=== PATIENT | male | born 1965 | race Caucasian/White ===

== ENCOUNTER → 2021-08-29 | Outpatient (CLI) | payer OTHER ==
[2021-08-29 14:49] LABS: Basophils # (A) 0.04 X 10*3/uL (0.00-0.10); Basophils % (A) 0.4 %; Eosinophils # (A) 0.13 X 10*3/uL (0.04-0.35); Eosinophils % (A) 1.3 %; HCT 36.3 % (39.6-50.0); Lymphocytes # (A) 3.26 X 10*3/uL (0.90-5.00); Lymphocytes % (A) 32.4 %; MCH 30.8 pg (27.0-32.0); MCHC 33.1 g/dL (32.0-37.0); MCV 93.1 fL (80.0-97.0); Mean Platelet Volume 9.9 fL (9.5-12.2); Monocytes # (A) 0.78 X 10*3/uL (0.20-1.00); Monocytes % (A) 7.7 %; Neutrophils # (A) 5.82 X 10*3/uL (1.80-7.70); Neutrophils % (A) 57.8 %; Platelet Count 299 X 10*3/uL (140-440); RDW 12.4 % (11.5-14.5); WBC 10.07 X 10*3/uL (4.50-10.00)
[2021-08-29 15:18] LABS: Ferritin 26.1 ng/mL (22.0-322.0)
== END | disposition home or self-care (01) ==
LOC: LABWHC1 08:33
PROVIDERS: ATTEND Family Medicine
DX: E11.9 Type 2 diabetes mellitus without complications (principal); D64.9 Anemia, unspecified
CPT/HCPCS: 36415; 82728; 83036; 83540; 85025

== ENCOUNTER → 2022-01-09 | Outpatient (CLI) | payer OTHER ==
[2022-01-09 14:56] LABS: Basophils # (A) 0.01 X 10*3/uL (0.00-0.10); Basophils % (A) 0.1 %; Eosinophils # (A) 0.12 X 10*3/uL (0.04-0.35); Eosinophils % (A) 1.1 %; HCT 35.1 % (39.6-50.0); HGB 11.4 g/dL (13.0-17.0); Immature Grans, Automated 0.4 %; Lymphocytes # (A) 3.35 X 10*3/uL (0.90-5.00); Lymphocytes % (A) 29.4 %; MCH 30.2 pg (27.0-32.0); MCHC 32.5 g/dL (32.0-37.0); MCV 92.9 fL (80.0-97.0); Mean Platelet Volume 10.2 fL (9.5-12.2); Monocytes # (A) 0.92 X 10*3/uL (0.20-1.00); Monocytes % (A) 8.1 %; NRBC Per 100 WBC 0 /100 WBCS (0.0-0.0); Neutrophils # (A) 6.94 X 10*3/uL (1.80-7.70); Neutrophils % (A) 60.9 %; Platelet Count 269 X 10*3/uL (140-440); RBC 3.78 X 10*6/uL (4.40-5.60); RDW 12.8 % (11.5-14.5); WBC 11.38 X 10*3/uL (4.50-10.00)
[2022-01-09 15:23] LABS: % Iron Saturation 13.22 (15.00-50.00); ALT 17 U/L (10-49); AST 22 U/L (14-35); African American GFR (CKD) 116.6 (60.0-200.0); Albumin 4.3 g/dL (3.8-4.9); Albumin/Globulin Ratio 1.72 (1.60-3.17); Alkaline Phosphatase 80 U/L (41-126); BUN/Creat Ratio 34.88 Ratio (12.00-20.00); Blood Urea Nitrogen 27.9 mg/dL (9.0-27.0); Calcium 9.5 mg/dL (8.7-10.3); Carbon Dioxide 24.4 mmol/L (20.0-27.5); Chloride 103 mmol/L (96-109); Chol/HDL Ratio 2.54 Ratio; Ferritin 30.3 ng/mL (22.0-322.0); Globulin 2.5 g/dL (1.6-3.3); Glucose 108 mg/dL (70-110); Iron 47 ug/dL (65-175); Non-African American GFR(CKD) 100.6 (60.0-200.0); Potassium 3.7 mmol/L (3.5-5.5); Sodium 136 mmol/L (135-145); Total Bilirubin <0.15 mg/dL (0.30-1.20); Total Iron Binding Capacity 356 ug/dL (228-460); Total Protein 6.8 g/dL (6.2-8.2); VLDL Calculation 11.62 mg/dL (5.00-40.00)
== END | disposition home or self-care (01) ==
LOC: LABWHC1 08:43
PROVIDERS: ATTEND Family Medicine
DX: Z00.00 Encounter for general adult medical examination without abnormal findings (principal); E11.59 Type 2 diabetes mellitus with other circulatory complications; E55.9 Vitamin D deficiency, unspecified; D64.9 Anemia, unspecified
CPT/HCPCS: 80061; 80053; 82728; 83540; 83550; 85025; 82306; 83036; 36415; G0103

== ENCOUNTER → 2023-12-18 | Outpatient (CLI) | payer OTHER ==
--- NOTE | 2023-12-18 09:16 | XR ---
EXAMINATION TYPE: XR lumbar spine 2 or 3V DATE OF EXAM: 12/18/2023 8:50 AM CLINICAL INDICATION:Male, 58 years old with history of M54.50 LUMBAR PAIN; [facility] COMPARISON: None TECHNIQUE: XR lumbar spine 2 or 3V - Frontal, lateral and coned in L5-S1 lateral views of the spine. FINDINGS: No evidence of any acute osseous pathology. No evidence of loss of vertebral body height i s seen. There is normal alignment of the lumbar vertebral bodies. Mild scattered disc space narrowing . Multilevel marginal osteophyte formation throughout the visualized spine. There is facet joint arth ropathy throughout the spine. Scattered at least mild neural foraminal stenosis. Right renal calculi measuring up to 13 mm. Severe atherosclerotic severe arterial vasculature. IMPRESSION: 1. No acute fracture. 2. Moderate multilevel disc degeneration.
== END | disposition home or self-care (01) ==
LOC: RADXRMAIN 08:25
PROVIDERS: ATTEND Family Medicine
DX: M51.37 Other intervertebral disc degeneration, lumbosacral region (principal)
CPT/HCPCS: 72100

== ENCOUNTER → 2023-12-25 | Outpatient (CLI) | payer OTHER ==
[2023-12-25 15:33] LABS: ALT 20 U/L (10-49); AST 25 U/L (14-35); Albumin 4.3 g/dL (3.8-4.9); Albumin/Globulin Ratio 1.95 Ratio (1.60-3.17); Alkaline Phosphatase 57 U/L (41-126); Calcium 9.8 mg/dL (8.7-10.3); Carbon Dioxide 23.2 mmol/L (21.6-31.8); Chloride 104 mmol/L (96-109); Chol/HDL Ratio 2.14 Ratio; Ferritin 31.3 ng/mL (22.0-322.0); Globulin 2.2 g/dL (1.6-3.3); Glucose 113 mg/dL (70-110); Iron 79 UG/DL (65-175); LDL Cholesterol,Calculated 49.8 mg/dL (0.0-131.0); Potassium 4.1 mmol/L (3.5-5.5); Sodium 139 mmol/L (135-145); Total Bilirubin 0.2 mg/dL (0.3-1.2); Total Protein 6.5 g/dL (6.2-8.2); VLDL Calculation 10.52 mg/dL (5.00-40.00)
[2023-12-25 16:15] LABS: Basophils # (A) 0.04 X 10*3/uL (0.00-0.10); Basophils % (A) 0.5 %; Eosinophils # (A) 0.22 X 10*3/uL (0.04-0.35); Eosinophils % (A) 2.9 %; HCT 36.5 % (39.6-50.0); HGB 12.1 g/dL (13.0-17.0); Lymphocytes # (A) 2.61 X 10*3/uL (0.90-5.00); Lymphocytes % (A) 34.1 %; MCH 31.4 pg (27.0-32.0); MCHC 33.2 g/dL (32.0-37.0); MCV 94.8 FL (80.0-97.0); Mean Platelet Volume 9.9 FL (9.5-12.2); Monocytes # (A) 0.59 X 10*3/uL (0.20-1.00); Monocytes % (A) 7.7 %; NRBC Per 100 WBC 0 X 10*3/uL (0.00-0.01); Neutrophils # (A) 4.16 X 10*3/uL (1.80-7.70); Neutrophils % (A) 54.4 %; Platelet Count 274 X 10*3/uL (140-440); RBC 3.85 X 10*6/uL (4.40-5.60); RDW 12.6 % (11.5-14.5); WBC 7.65 X 10*3/uL (4.50-10.00)
== END | disposition home or self-care (01) ==
LOC: LABWHC1 08:25
PROVIDERS: ATTEND Family Medicine
DX: Z00.00 Encounter for general adult medical examination without abnormal findings (principal); Z12.5 Encounter for screening for malignant neoplasm of prostate; D50.8 Other iron deficiency anemias; E11.40 Type 2 diabetes mellitus with diabetic neuropathy, unspecified; E78.00 Pure hypercholesterolemia, unspecified
CPT/HCPCS: 80061; 80053; 82728; 83540; 84443; 85025; 83036; 36415; G0103

== ENCOUNTER → 2024-03-30 | Outpatient (CLI) | payer OTHER ==
--- NOTE | 2024-04-16 09:26 | US ---
Patient Parth العراقي ID [id number] Order # EXAMINATION TYPE: US venous doppler duplex LE RT DATE OF EXAM: 03/30/2024 10:27 AM COMPARISON: NONE CLINICAL INDICATION: Rule out blood clot lower extremity SIDE PERFORMED: Bilateral TECHNIQUE: The lower extremity deep venous system is examined utilizing real time linear array sonog karishma with graded compression, doppler sonography and color-flow sonography. VESSELS IMAGED: Common Femoral Vein Deep Femoral Vein Greater Saphenous Vein * Femoral Vein Popliteal Vein Small Saphenous Vein * Proximal Calf Veins (* superficial vessels) Right Leg: No ultrasound evidence of DVT Left Leg: No ultrasound evidence of DVT IMPRESSION: 1. No ultrasound evidence of lower extremity deep venous thrombosis.
== END | disposition home or self-care (01) ==
LOC: RADUSWWP 09:29
PROVIDERS: ATTEND Podiatrist Foot & Ankle Surgery
DX: I82.401 Acute embolism and thrombosis of unspecified deep veins of right lower extremity (principal)

== ENCOUNTER 2024-04-28 08:21 | Emergency (ER) | payer OTHER ==
[2024-04-28] MEDS: HYDROmorphone 1 MG/ML 1 ML SYRINGE IM STA (08:49)
[2024-04-28] MEDS: CYCLOBENZAPRINE 10 MG TAB PO STA (08:50)
--- NOTE | 2024-04-28 09:01 | ED ---
Lower Extremity Injury HPI - General Chief Complaint: Extremity Injury, Lower Stated Complaint: R Foot Numbness Time Seen by Provider: 04/28/24 08:28 Source: patient, RN notes reviewed Mode of arrival: ambulatory Limitations: no limitations - History of Present Illness Initial Comments: 58-year-old male presents emergency department chief complaint of right leg pain and numbness. Patient states that this has been going on for several months with pain and states that numbness started a few months ago. 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 Patient had EMG showing no radicular symptoms. Patient was started on gabapentin without relief after 2 weeks. Patient states that he is a smoker has a history of hypertension and diabetic. Patient's had a prior stroke and has left-sided deficits. Patient states he usually gets pain after walking he states he used to walk 12 blocks but states after 2 blocks he gets cramping and pain in his calf. He denies any chest pain or shortness of breath - Related Data Home Medications Medication Instructions Recorded Confirmed Atorvastatin [Lipitor] 40 mg PO DAILY 11/30/15 12/21/15 Mometasone/Formoterol [Dulera 200 1 puff INHALATION BID 11/30/15 12/21/15 Mcg/5 Mcg Inhaler] Montelukast [Singulair] 10 mg PO HS 11/30/15 12/21/15 Ventolin Inhaler 90 Mcg 2 puff PO QID 11/30/15 12/21/15 amLODIPine BESYLATE [Norvasc] 2.5 mg PO DAILY 11/30/15 12/21/15 glipiZIDE [Glucotrol] 5 mg PO BID 11/30/15 12/21/15 lisinopriL [Zestril] 20 mg PO DAILY 11/30/15 12/21/15 metFORMIN HCL [Glucophage] 500 mg PO BID 11/30/15 12/21/15 Allergies Allergy/AdvReac Type Severity Reaction Status Date / Time No Known Allergies Allergy Verified 04/28/24 08:25 Review of Systems ROS Statement: Those systems with pertinent positive or pertinent negative responses have been documented in the HPI. ROS Other: All systems not noted in ROS Statement are negative. Past Medical History Past Medical History: Asthma, Diabetes Mellitus, GERD/Reflux, Hyperlipidemia, Hypertension, Sleep Apnea/CPAP/BIPAP Additional Past Medical History / Comment(s): STATES RECENT DIAGNOSIS OF ASTHMA, RASH ON LEFT WRIST, STATES HE CANT WALK FAR AND HAS SOB & PAIN IN HIS LEGS- PAIN WORSE WHEN CLIMBING STAIRS., PAIN ON THE BOTTOM OF LEFT FOOT WITH WALKING., PT STATES RECENT COLD AND STEROID USE (PRENISONE), SEE CARDIOLOGY H & P. History of Any Multi-Drug Resistant Organisms: None Reported Past Surgical History: No Surgical Hx Reported Additional Past Surgical History / Comment(s): HX OF COLOLOSCOPY X2. Past Anesthesia/Blood Transfusion Reactions: No Reported Reaction Past Psychological History: Anxiety Smoking Status: Current every day smoker Past Alcohol Use History: Occasional Past Drug Use History: Marijuana - Past Family History Brother(s) Family Medical History: Cancer Additional Family Medical History / Comment(s): COLON CANCER General Exam Limitations: no limitations General appearance: alert, in no apparent distress Head exam: Present: atraumatic, normocephalic, normal inspection Eye exam: Present: normal appearance, PERRL, EOMI. Absent: scleral icterus, conjunctival injection, periorbital swelling Neck exam: Present: normal inspection, full ROM. Absent: tenderness, meningismus, lymphadenopathy Respiratory exam: Present: normal lung sounds bilaterally. Absent: respiratory distress, wheezes, rales, rhonchi, stridor Cardiovascular Exam: Present: regular rate, normal rhythm, normal heart sounds. Absent: systolic murmur, diastolic murmur, rubs, gallop, clicks GI/Abdominal exam: Present: soft, normal bowel sounds. Absent: distended, tenderness, guarding, rebound, rigid Extremities exam: Present: other (Right lower extremity neurovascular intact pulses bilaterally pulses, there is no discoloration obvious swelling full range of motion) Back exam: Present: normal inspection, full ROM. Absent: tenderness Neurological exam: Present: alert, oriented X3 Course Vital Signs 04/28/24 04/28/24 08:22 09:17 Temperature 97.7 F 97.9 F Pulse Rate 90 91 Respiratory 20 18 Rate Blood Pressure 127/80 O2 Sat by Pulse 100 98 Oximetry Medical Decision Making - Medical Decision Making Was pt. sent in by a medical professional or institution (, PA, MONOMER RECOVERY OPERATOR, urgent care, hospital, or detention...) When possible be specific @ -No Did you speak to anyone other than the patient for history (EMS, parent, family, police, friend...)? What history was obtained from this source @ -No Did you review nursing and triage notes (agree or disagree)? Why? @ -I reviewed and agree with nursing and triage notes Were old charts reviewed (outside hosp., previous admission, EMS record, old EK G, old radiological studies, urgent care reports/EKG's, detention records)? Report findings @ -No old charts were reviewed Differential Diagnosis (chest pain, altered mental status, abdominal pain women, abdominal pain men, vaginal bleeding, weakness, fever, dyspnea, syncope, headache, dizziness, GI bleed, back pain, seizure, CVA, palpatations, mental health, musculoskeletal)? @ -Peripheral neuropathy, peripheral vascular disease, claudication pain, DVT, calf pain EKG interpreted by me (3pts min.). @ -None X-rays interpreted by me (1pt min.). @ -None done CT interpreted by me (1pt min.). @ -None done U/S interpreted by me (1pt. min.). @ -Ultrasound is negative for acute DVT What testing was considered but not performed or refused? (CT, X-rays, U/S, labs)? Why? @ -None What meds were considered but not given or refused? Why? @ -None Did you discuss the management of the patient with other professionals (professionals i.e. , PA, MONOMER RECOVERY OPERATOR, lab, RT, psych nurse, psychosocial rehabilitation counselor, resident services supervisor, te acher, adult probation officer, director of casework services)? Give summary @ -No Was smoking cessation discussed for >3mins.? @ -No Was critical care preformed (if so, how long)? @ -No Were there social determinants of health that impacted care today? How? (Homelessness, low income, unemployed, alcoholism, drug addiction, transportation, low edu. Level, literacy, decrease access to med. care, correction, rehab)? @ -No Was there de-escalation of care discussed even if they declined (Discuss DNR or withdrawal of care, Hospice)? DNR status @ -No What co-morbidities impacted this encounter? (DM, HTN, Smoking, COPD, CAD, Cancer, CVA, ARF, Chemo, Hep., AIDS, mental health diagnosis, sleep apnea, morbid obesity)? @ -Diabetes, hypertension, smoking history Was patient admitted / discharged? Hospital course, mention meds given and route, prescriptions, significant lab abnormalities, going to OR and other pertinent info. @ -Discharge ultrasound was negative. This has been an ongoing chronic issue. This is more claudication pain, peripheral neuropathy pain. Patient will follow-up with vascular for further evaluation as he currently sees orthopedics and neurology. Undiagnosed new problem with uncertain prognosis? @ -No Drug Therapy requiring intensive monitoring for toxicity (Heparin, Nitro, Insulin, Cardizem)? @ -No Were any procedures done? @ -No Diagnosis/symptom? @ -Peripheral neuropathy, claudication pain Acute, or Chronic, or Acute on Chronic? @ -Acute Uncomplicated (without systemic symptoms) or Complicated (systemic symptoms)? @ -Uncomplicated Side effects of treatment? @ -No Exacerbation, Progression, or Severe Exacerbation? @ -No Poses a threat to life or bodily function? How? (Chest pain, [place], [place], pneumonia, PE, COPD, DKA, ARF, appy, cholecystitis, CVA, Diverticulitis, Homicidal, Suicidal, threat to staff... and all critical care pts) @ -No Disposition Clinical Impression: Peripheral vascular disease, Claudication, Peripheral neuropathy Disposition: HOME SELF-CARE Condition: Stable Instructions (If sedation given, give patient instructions): Peripheral Vascular Disease (ED), Diabetic Peripheral Neuropathy (ED) Additional Instructions: Please return to the Emergency Department if symptoms worsen or any other concerns. Is patient prescribed a controlled substance at d/c from ED?: No Referrals: Neri Booth [Primary Care Provider] - 1-2 days Home Aleman DO [STAFF PHYSICIAN] - 1-2 days Time of Disposition: 09:44
[2024-04-28 09:35] VITALS: RESP 18
--- NOTE | 2024-04-28 09:37 | US ---
EXAMINATION TYPE: US venous doppler duplex LE RT DATE OF EXAM: 04/28/2024 9:18 AM COMPARISON: NONE CLINICAL INDICATION: Male, 58 years old with history of pain; pain when walking, foot numbness for mo nths, no h/o dvt, no swelling SIDE PERFORMED: Right TECHNIQUE: The lower extremity deep venous system is examined utilizing real time linear array sonog karishma with graded compression, doppler sonography and color-flow sonography. VESSELS IMAGED: Common Femoral Vein Deep Femoral Vein Greater Saphenous Vein * Femoral Vein Popliteal Vein Small Saphenous Vein * Proximal Calf Veins (* superficial vessels) Right Leg: Negative for DVT IMPRESSION: Grayscale, color doppler, spectral doppler imaging performed of the deep veins of the lo wer extremities. There is normal flow, compressibility, vascular waveforms.
[2024-04-28 10:08] VITALS: BP 125/79; PULSE 74; TEMP 98.1
== END 2024-04-28 10:05 | disposition home or self-care (01) ==
LOC: EC 08:21
CPT/HCPCS: 96372; 99283

== ENCOUNTER 2024-05-13 08:15 | Inpatient (IN) | payer OTHER ==
--- NOTE | 2024-05-13 09:04 | ED ---
General Adult HPI - General Chief complaint: Extremity Injury, Lower Stated complaint: R leg pain Time Seen by Provider: 05/13/24 08:35 Source: patient, RN notes reviewed Mode of arrival: ambulatory Limitations: no limitations - History of Present Illness Initial comments: This is a 58-year-old male coming to ED for right foot and calf pain x 2 weeks. Patient states symptoms have been chronic for last 2 years. Patient endorses pain in right calf and pain and some paresthesia in right foot. Patient states pain is 10 out of 10 at all times. Denies recent trauma to leg. Patient states he is being seen by Dr. Davis for a blood flow issue to both legs but especially right leg. States he does not yet have a date for procedure to correct issue. States he has been taking [place] 500 and Tylenol for pain with no relief Onset/Timin -: week(s) Location: right, lower extremity Radiation: distal - Related Data Home Medications Medication Instructions Recorded Confirmed Atorvastatin [Lipitor] 40 mg PO DAILY 11/30/15 12/21/15 lisinopriL [Zestril] 20 mg PO DAILY 11/30/15 12/21/15 Amoxicillin 875 mg PO Q12HR 05/13/24 05/13/24 Aspirin EC [Ecotrin Low Dose] 81 mg PO DAILY 05/13/24 05/13/24 Baclofen 10 mg PO BID 05/13/24 05/13/24 Cholecalciferol [Vitamin D3 (25 50 mcg PO DAILY 05/13/24 05/13/24 Mcg = 1000 Iu)] Ferrous Sulfate [Feosol] 325 mg PO DAILY 05/13/24 05/13/24 Gabapentin 300 mg PO BID 05/13/24 05/13/24 HYDROcodone/APAP 5-325MG [[place] 1 tab PO Q12H 05/13/24 05/13/24 5-325] Insulin Glargine,Hum.rec.anlog 35 units SQ HS 05/13/24 05/13/24 [Lantus Solostar Pen] amLODIPine [Norvasc] 5 mg PO DAILY 05/13/24 05/13/24 buPROPion SR [Wellbutrin SR] 150 mg PO BID 05/13/24 05/13/24 metFORMIN HCL 1,000 mg PO BID 05/13/24 05/13/24 sitaGLIPtin [Januvia] 100 mg PO DAILY 05/13/24 05/13/24 Allergies Allergy/AdvReac Type Severity Reaction Status Date / Time No Known Allergies Allergy Verified 05/13/24 11:13 Review of Systems ROS Statement: Those systems with pertinent positive or pertinent negative responses have been documented in the HPI. ROS Other: All systems not noted in ROS Statement are negative. Skin: Reports: other (Negative pallor, edema, erythema, ulceration) Past Medical History Past Medical History: Asthma, Diabetes Mellitus, GERD/Reflux, Hyperlipidemia, Hypertension, Sleep Apnea/CPAP/BIPAP Additional Past Medical History / Comment(s): STATES RECENT DIAGNOSIS OF ASTHMA, RASH ON LEFT WRIST, STATES HE CANT WALK FAR AND HAS SOB & PAIN IN HIS LEGS- PAIN WORSE WHEN CLIMBING STAIRS., PAIN ON THE BOTTOM OF LEFT FOOT WITH WALKING., PT STATES RECENT COLD AND STEROID USE (PRENISONE), SEE CARDIOLOGY H & P. History of Any Multi-Drug Resistant Organisms: None Reported Past Surgical History: No Surgical Hx Reported Additional Past Surgical History / Comment(s): HX OF COLOLOSCOPY X2. Past Anesthesia/Blood Transfusion Reactions: No Reported Reaction Past Psychological History: Anxiety Smoking Status: Current every day smoker Past Alcohol Use History: Occasional Past Drug Use History: Marijuana - Past Family History Brother(s) Family Medical History: Cancer Additional Family Medical History / Comment(s): COLON CANCER General Exam Limitations: no limitations General appearance: alert Head exam: Present: atraumatic, normocephalic, normal inspection Eye exam: Present: normal appearance, PERRL, EOMI. Absent: scleral icterus, conjunctival injection, periorbital swelling Pupils: Present: normal accommodation ENT exam: Present: normal exam, mucous membranes moist Neck exam: Present: normal inspection. Absent: tenderness, meningismus, lymphadenopathy Respiratory exam: Present: normal lung sounds bilaterally. Absent: respiratory distress, wheezes, rales, rhonchi, stridor Cardiovascular Exam: Present: regular rate, normal rhythm, normal heart sounds. Absent: systolic murmur, diastolic murmur, rubs, gallop, clicks GI/Abdominal exam: Present: soft, normal bowel sounds. Absent: distended, tenderness, guarding, rebound, rigid Rectal exam: Present: deferred Extremities exam: Present: full ROM, tenderness, normal capillary refill, calf tenderness, other (Positive right calf and pedal tenderness right dorsalis pedis and posterior tibialis pulse +1. Plantar and dorsiflexion strength 5 out of 5. Pedal sensation normal in all dermatomes). Absent: pedal edema, joint swelling Right Lower Leg exam: Present: tenderness, Homans' sign Ankle exam: Present: normal inspection Foot/Toe exam: Present: full ROM (Positive right calf and foot tenderness. Positive Homans' sign. Negative edema, erythema, pallor. Strength 5 out of 5 in dorsiflexion, plantarflexion. Range of motion intact in all toes. ) Neurovascular tendon exam: Present: no vascular compromise (Dorsalis pedis and posterior tibialis pulse +1. Capillary refill less than 2 seconds. Normal pedal sensation in all dermatomes) Back exam: Present: normal inspection Neurological exam: Present: alert, oriented X3, CN II-XII intact Psychiatric exam: Present: normal affect, normal mood Skin exam: Present: warm, dry, intact, normal color. Absent: rash Course Vital Signs 05/13/24 08:23 Temperature 98.0 F Pulse Rate 78 Respiratory 16 Rate Blood Pressure 120/74 O2 Sat by Pulse 99 Oximetry Medical Decision Making - Medical Decision Making Was pt. sent in by a medical professional or institution (, LISANDRO, STRIP FEEDER, urgent care, hospital, or fpc...) When possible be specific @ -No Did you speak to anyone other than the patient for history (EMS, parent, family, police, friend...)? What history was obtained from this source @ -No Did you review nursing and triage notes (agree or disagree)? Why? @ -I reviewed and agree with nursing and triage notes Were old charts reviewed (outside hosp., previous admission, EMS record, old EKG, old radiological studies, urgent care reports/EKG's, fpc records)? Report findings @ -No old charts were reviewed Differential Diagnosis (chest pain, altered mental status, abdominal pain women, abdominal pain men, vaginal bleeding, weakness, fever, dyspnea, syncope, headache, dizziness, GI bleed, back pain, seizure, CVA, palpatations, mental health, musculoskeletal)? @ -DVT, PVD, PAD, sciatica, tib-fib fracture, compartment syndrome EKG interpreted by me (3pts min.). @ -None X-rays interpreted by me (1pt min.). @ -None done CT interpreted by me (1pt min.). @ -None done U/S interpreted by me (1pt. min.). @ -None done What testing was considered but not performed or refused? (CT, X-rays, U/S, labs)? Why? @ -None What meds were considered but not given or refused? Why? @ -None Did you discuss the management of the patient with other professionals (professionals i.e. DrAntonio, PA, STRIP FEEDER, lab, RT, psych nurse, child protective services social worker, pit inspector, teacher, fisheries officer, medical case worker)? Give summary @ -No Was smoking cessation discussed for >3mins.? @ -No Was critical care preformed (if so, how long)? @ -No Were there social determinants of health that impacted care today? How? (Homelessness, low income, unemployed, alcoholism, drug addiction, transportation, low edu. Level, literacy, decrease access to med. care, correction, rehab)? @ -No Was there de-escalation of care discussed even if they declined (Discuss DNR or withdrawal of care, Hospice)? DNR status @ -No What co-morbidities impacted this encounter? (DM, HTN, Smoking, COPD, CAD, Cancer, CVA, ARF, Chemo, Hep., AIDS, mental health diagnosis, sleep apnea, morbid obesity)? @ -None Was patient admitted / discharged? Hospital course, mention meds given and route, prescriptions, significant lab abnormalities, going to OR and other pertinent info. @ -Admitted for angiogram. Patient provided Toradol for pain. Blood drawn CBC, CMP, PT/INR, PTT. Patient placed on Dilaudid and Narcan as needed. saline lock placed patient placed on n.p.o. Undiagnosed new problem with uncertain prognosis? @ -No Drug Therapy requiring intensive monitoring for toxicity (Heparin, Nitro, Insulin, Cardizem)? @ -No Were any procedures done? @ -No Diagnosis/symptom? @ -PVD with right lower extremity pain Acute, or Chronic, or Acute on Chronic? @ -Acute on chronic Uncomplicated (without systemic symptoms) or Complicated (systemic symptoms)? @ -Complicated Side effects of treatment? @ -No Exacerbation, Progression, or Severe Exacerbation? @ -No Poses a threat to life or bodily function? How? (Chest pain, [place], [place], pneumonia, PE, COPD, DKA, ARF, appy, cholecystitis, CVA, Diverticulitis, Homicidal, Suicidal, threat to staff... and all critical care pts) @ -No Disposition Clinical Impression: PVD (peripheral vascular disease), PVD (peripheral vascular disease) with claudication Disposition: ADMITTED IP TO THIS [facility] Condition: Fair Additional Instructions: Please return to the Emergency Department if symptoms worsen or any other concerns. Is patient prescribed a controlled substance at d/c from ED?: No Referrals: Neri Booth [Primary Care Provider] - 1-2 days Time of Disposition: 13:34 Decision Date: 05/13/24 Decision Time: 11:20
[2024-05-13] MEDS: KETOROLAC 15 MG/ML 1 ML VIAL IM STA (09:05)
[2024-05-13] MEDS ORDERED: HYDROmorphone 0.5 MG/0.5 ML SYRINGE IVP PRN (10:29)
[2024-05-13] MEDS ORDERED: NALOXONE 0.4 MG/ML 1 ML VIAL IV PRN (10:29)
--- NOTE | 2024-05-13 10:30 | US ---
EXAMINATION TYPE: US venous doppler duplex LE RT DATE OF EXAM: 05/13/2024 9:40 AM COMPARISON: US 2023 CLINICAL INDICATION: Male, 58 years old with history of pain; Right lower leg pain SIDE PERFORMED: Right TECHNIQUE: The lower extremity deep venous system is examined utilizing real time linear array sonog karishma with graded compression, doppler sonography and color-flow sonography. VESSELS IMAGED: Common Femoral Vein Deep Femoral Vein Greater Saphenous Vein * Femoral Vein Popliteal Vein Small Saphenous Vein * Proximal Calf Veins (* superficial vessels) Right Leg: Appears negative for DVT IMPRESSION: Right lower extremity ultrasound negative for deep venous thrombosis. [facility], , 05/13/2024 10:28 AM
[2024-05-13 11:19] LABS: HCT 37.2 % (39.0-53.0); HGB 12.2 gm/dL (13.0-17.5); MCH 31.2 pg (25.0-35.0); MCHC 32.9 g/dL (31.0-37.0); MCV 94.8 fL (80.0-100.0); Mean Platelet Volume 7.2; Platelet Count 290 k/uL (150-450); RBC 3.92 m/uL (4.30-5.90); RDW 12.7 % (11.5-15.5); WBC 6.4 k/uL (3.8-10.6)
[2024-05-13 11:35] LABS: ALT 31 U/L (4-49); AST 29 U/L (17-59); African American GFR (CKD) >90 (>60 ml/min/1.73 sqM); Albumin 4.1 g/dL (3.5-5.0); Alkaline Phosphatase 55 U/L (38-126); Anion Gap 4 mmol/L; Blood Urea Nitrogen 23 mg/dL (9-20); Calcium 10.1 mg/dL (8.4-10.2); Carbon Dioxide 27 mmol/L (22-30); Chloride 108 mmol/L (98-107); Glucose 85 mg/dL (74-99); Non-African American GFR(CKD) >90 (>60 ml/min/1.73 sqM); Potassium 4.4 mmol/L (3.5-5.1); Sodium 139 mmol/L (137-145); Total Bilirubin 0.4 mg/dL (0.2-1.3); Total Protein 6.4 g/dL (6.3-8.2)
[2024-05-13 11:41] LABS: Partial Thromboplastin Time 25.1 sec (22.0-30.0); Prothrombin Time 10.7 sec (10.0-12.5)
--- NOTE | 2024-05-13 12:06 | P.GSCN ---
History of Present Illness Consult date: 05/13/24 Reason for Consult: Arterial disease Requesting physician: Amaury Zimmerman History of present illness: This a pleasant 58-year-old male with chronic bilateral peripheral arterial disease and complains of right lower extremity claudication who has been following with vascular surgery, Dr. Aleman who presented to the emergency department with complaints of ongoing right lower extremity pain. Patient states this has been ongoing for last 2 years and is becoming harder to walk on that right lower extremity due to pain. Medical history includes hypertension, hyperlipidemia, previous stroke with residual left-sided weakness, daily smoker, asthma, and sleep apnea on CPAP. Patient was just seen in the office this past Friday and was going to be scheduled for outpatient angiogram for further evaluation of right lower extremity bloodflow. Patient currently denies any shortness of breath, chest pain, nausea or vomiting. No fevers or chills. Review of Systems A 14 point review systems was completed all pertinent positives and negatives as stated in the HPI. Past Medical History Past Medical History: Asthma, Diabetes Mellitus, GERD/Reflux, Hyperlipidemia, Hypertension, Sleep Apnea/CPAP/BIPAP Additional Past Medical History / Comment(s): STATES RECENT DIAGNOSIS OF ASTHMA, RASH ON LEFT WRIST, STATES HE CANT WALK FAR AND HAS SOB & PAIN IN HIS LEGS- PAIN WORSE WHEN CLIMBING STAIRS., PAIN ON THE BOTTOM OF LEFT FOOT WITH WALKING., PT STATES RECENT COLD AND STEROID USE (PRENISONE), SEE CARDIOLOGY H & P. History of Any Multi-Drug Resistant Organisms: None Reported Past Surgical History: No Surgical Hx Reported Additional Past Surgical History / Comment(s): HX OF COLOLOSCOPY X2. Past Anesthesia/Blood Transfusion Reactions: No Reported Reaction Past Psychological History: Anxiety Smoking Status: Current every day smoker Past Alcohol Use History: Occasional Past Drug Use History: Marijuana - Past Family History Brother(s) Family Medical History: Cancer Additional Family Medical History / Comment(s): COLON CANCER Medications and Allergies Home Medications Medication Instructions Recorded Confirmed Type Atorvastatin [Lipitor] 40 mg PO DAILY 11/30/15 05/13/24 History lisinopriL [Zestril] 20 mg PO DAILY 11/30/15 05/13/24 History Amoxicillin 875 mg PO Q12HR 05/13/24 05/13/24 History Aspirin EC [Ecotrin Low Dose] 81 mg PO DAILY 05/13/24 05/13/24 History Baclofen 10 mg PO BID 05/13/24 05/13/24 History Cholecalciferol [Vitamin D3 (25 50 mcg PO DAILY 05/13/24 05/13/24 History Mcg = 1000 Iu)] Ferrous Sulfate [Feosol] 325 mg PO DAILY 05/13/24 05/13/24 History Gabapentin 300 mg PO BID 05/13/24 05/13/24 History HYDROcodone/APAP 5-325MG [[place] 1 tab PO Q12H 05/13/24 05/13/24 History 5-325] Insulin Glargine,Hum.rec.anlog 35 units SQ HS 05/13/24 05/13/24 History [Lantus Solostar Pen] amLODIPine [Norvasc] 5 mg PO DAILY 05/13/24 05/13/24 History buPROPion SR [Wellbutrin SR] 150 mg PO BID 05/13/24 05/13/24 History metFORMIN HCL 1,000 mg PO BID 05/13/24 05/13/24 History sitaGLIPtin [Januvia] 100 mg PO DAILY 05/13/24 05/13/24 History Allergies Allergy/AdvReac Type Severity Reaction Status Date / Time No Known Allergies Allergy Verified 05/13/24 11:13 Surgical - Exam Vital Signs Temp Pulse Resp BP Pulse Ox 98.0 F 78 16 120/74 99 05/13/24 08:23 05/13/24 08:23 05/13/24 08:23 05/13/24 08:23 05/13/24 08:23 General appearance: The patient is alert, oriented, appears in no acute distress. HET: Head is normocephalic and atraumatic. Pupils are equal and reactive. Neck: Supple. No carotid bruit. Heart: Regular. Lungs: Equal expansion, normal respiratory effort. Abdomen: Soft, nontender, nondistended. Extremities: Normal skin color and turgor. Palpable +2 radial pulses bilaterally, nonpalpable DP or PT pulses. Right calf tender with calf squeeze, bilateral lower extremities warm to the touch with intact sensorimotor. Monophasic Doppler signals. Neurological: No focal deficits. Strength and sensation are grossly intact. Results - Labs 05/13/24 11:08 05/13/24 11:08 - Imaging Comments: Right lower extremity venous ultrasound negative for DVT Assessment and Plan Assessment: 1. Chronic right lower extremity peripheral arterial disease with claudication 2. Right lower extremity pain 3. Daily smoker 4. History of stroke with residual left-sided weakness 5. Hypertension 6. Diabetes mellitus 7. Hyperlipidemia 8. Sleep apnea Plan: 1. Keep patient n.p.o. 2. Will schedule patient for lower extremity angiogram today 3. Rest of medical management per primary medical team 4. Further recommendations forthcoming based on angiogram findings Thank you for this consultation, we will continue to follow. The impression and plan of care has been dictated as directed. Dr. Jara I performed a history and examination of this patient, discussed the same with the dictator. I agree with the dictator's note ,documented as a scribe. Any ad ditional findings or plans will be noted.
[2024-05-13] MEDS: fentaNYL (PF) 50 MCG/1 ML VIAL IVP ONE (13:38)
[2024-05-13] MEDS: LIDOCAINE 1% INJ 10MG/ML (20 ML MDV) SQ ONE (13:42)
[2024-05-13] MEDS: IOPAMIDOL-370 200ML BTL INJ ONE (13:58)
--- NOTE | 2024-05-13 14:04 | P.EN ---
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
--- NOTE | 2024-05-13 14:13 | P.OP ---
Date of Procedure: 05/13/24 Description of Procedure: preoperative diagnosis: Lewis 4 peripheral arterial disease right lower extremity Postoperative diagnosis: Same Procedure: Ultrasound-guided left radial artery access Placement of catheter in infrarenal abdominal aorta, selective second order, from radial approach Aortogram with bilateral lower extremity runoffs Moderate conscious sedation with personal monitoring certified RN administration and personal hemodynamic monitoring for 19 minutes Surgeon: Esperanza Jara D.O. EBL: Less than 5 cc IV fluids: See records Urine output: Not measured Drains: None Complications: None immediately apparent Condition: Stable to recovery Operative indication and findings: Patient is 58 a-year-old with peripheral vascular disease. On workup and evaluation was found to have abnormal ABIs prompting recommendations for an angiogram. Risks and benefits including but not limited to bleeding, infection, injury to the vessel, stroke, cardiopulmonary risks and ischemic changes to the extremities were discussed. They seemingly understood this willing to proceed. Procedure in detail: Patient was taken to the special suite and placed in supine position. The left upper extremity was prepped and draped in usual sterile fashion. A preprocedural timeout was performed, all parties were in agreement. Using the ultrasound, the radial artery was identified. The skin overlying was anesthetized with 1% lidocaine plain. The artery was patent without significant calcific disease and a permanent image was stored. Under direct visualization, the artery was accessed and Seldinger technique was used to place a 5 slender sheath. Catheters and wires were then used to selectively place a catheter across the subclavian, into the aortic arch and then selectively in the descending thoracic aorta and down into the abdominal aorta. Aortogram was performed. Catheter was then advanced to the level of the iliac bifurcation. A bilateral lower extremity step-off was performed. After satisfactory images, catheters and wires were removed. The sheath was removed and a TR band was cici patricia. Angiographic interpretation: The aorta is normal in course and caliber. Visualized portions of the superior mesenteric, celiac and renal arteries appear patent. Multiple lumbar arteries seen. Mild calcific disease noted in the bilateral common iliac arteries without significant occlusion. On the right, there is an area of some degree of mild stenosis through the external iliac artery without flow limitation. The common femoral artery appears patent without significant disease. The deep femoral artery appears patent without significant disease. The superficial femoral artery appears patent along its course without significant disease until the level of the adductor canal. There is potential area of narrowing through the adductor canal at the level of popliteal artery. The below-knee popliteal artery, anterior tibial, tibioperoneal trunk, posterior tibial and peroneal artery are patent to the level of the mid calf. The posterior tibial and anterior tibial are visualized at the ankle on the right. On the left the flow appears to be more sluggish through without any areas of obvious stenosis. The external iliac artery appears patent without significant disease. The common femoral artery appears patent without significant disease. The deep and superficial femoral arteries appear patent, there is mild disease throughout the superficial femoral artery. There is mild disease of the popliteal. There is a high takeoff of the anterior tibial artery at the popliteal artery. The tibioperoneal trunk appears patent without significant disease. Again flow is diminutive through the tibial vessels however there is visualization of the posterior tibial, peroneal and anterior tibial at about the level of the mid calf.
--- NOTE | 2024-05-13 14:33 | IR ---
EXAMINATION TYPE: IR angio abdominal w runoff DATE OF EXAM: 05/13/2024 COMPARISON: NONE HISTORY: Fluoroscopy time. Fluoroscopy was provided to the referring clinician. [facility], , 05/13/2024 2:31 PM
[2024-05-13] MEDS: HYDROmorphone 1 MG/ML 1 ML SYRINGE IVP PRN (20:44)
[2024-05-13] MEDS: MELATONIN 5 MG TABLET PO PRN (22:00)
[2024-05-14 12:11] LABS: Glucose,Whole Blood 188 mg/dL (70-110)
[2024-05-14] MEDS: INSULIN ASPART (NovoLOG) 100 UNIT/ML VIAL SQ SCH (12:52)
--- NOTE | 2024-05-14 13:10 | P.PN ---
Subjective Progress Note Date: 05/14/24 Principal diagnosis: Right lower extremity pain, [place] 4 peripheral arterial disease Patient is seen and examined today as a follow-up. Yesterday he underwent bilateral lower extremity angiogram. Patient still complains of pain down the right lower extremity. Burning sensation in his foot and pain in his calf specially when he is walking. Objective - Vital Signs Vital signs: Vital Signs Temp 97.5 F L 05/14/24 07:15 Pulse 67 05/14/24 07:15 Resp 16 05/14/24 07:15 BP 108/64 05/14/24 07:15 Pulse Ox 97 05/14/24 07:15 FiO2 Intake & Output 05/13/24 05/14/24 05/14/24 18:59 06:59 18:59 Intake Total 360 Balance 360 Weight 68.039 kg Intake: Oral 360 Other: # Voids 1 2 - Exam General appearance: The patient is alert, oriented, appears in no acute distress. HET: Head is normocephalic and atraumatic. Pupils are equal and reactive. Neck: Supple. No carotid bruit. Heart: Regular. Lungs: Equal expansion, normal respiratory effort. Abdomen: Soft, nontender, nondistended. Extremities: Normal skin color and turgor. Palpable +2 radial pulses bilaterally, nonpalpable DP or PT pulses. Right calf tender with calf squeeze, bilateral lower extremities warm to the touch with intact sensorimotor. Mon ophasic Doppler signals. Neurological: No focal deficits. Strength and sensation are grossly intact. - Labs CBC & Chem 7: 05/13/24 11:08 05/13/24 11:08 Labs: Abnormal Lab Results - Last 24 Hours (Table) 05/13/24 05/13/24 Range/Units 11:08 11:08 RBC 3.92 L (4.30-5.90) m/uL Hgb 12.2 L (13.0-17.5) gm/dL Hct 37.2 L (39.0-53.0) % Chloride 108 H (98-107) mmol/L BUN 23 H (9-20) mg/dL Assessment and Plan Assessment: 1. Chronic right lower extremity peripheral arterial disease with claudication 2. Right lower extremity pain 3. Daily smoker 4. History of stroke with residual left-sided weakness 5. Hypertension 6. Diabetes mellitus 7. Hyperlipidemia 8. Sleep apnea Plan: 1. N.p.o. after midnight 2. Will plan for right lower extremity angiogram with balloon angioplasty of external iliac artery and possible SFA artery tomorrow 3. Rest of medical management per primary medical team 4. Continue pain medication as needed Thank you for this consultation, we will continue to follow. The impression and plan of care has been dictated as directed. Dr. Aleman I performed a history and examination of this patient, discussed the same with the dictator. I agree with the dictator's note ,documented as a scribe. Any additional findings or plans will be noted.
--- NOTE | 2024-05-14 13:40 | P.HPIM ---
History of Present Illness This is a pleasant 58 years old male with past medical history of multiple medical problems as below. He has known history of peripheral vascular disease and he is diabetic and he follows up with vascular surgeon as an outpatient. Patient presents because of ongoing pain in his right leg with numbness in the toes. Patient states that his problem started about 9 months ago. In the beginning his numbness was intermittent but becoming more constant lately. His pain was more severe over the last 3 weeks. He tried different modalities with no much help so he decided to come to the emergency room. Patient states that his pain was 10/10 and felt like sharp over the last 3 weeks, it got worse with walking that now he has to stop. Previously you could walk easily 10-12 blocks now barely he can get to 2 blocks and he has to stop as above. He denies chest pain or dyspnea. No GI/ symptoms. He smokes half pack per day, he says he is down from 1.5 pack/day. He states he tried all modalities like nicotine patch gums and others with no much benefit and he declines these treatments for now. No alcohol or illicit drugs. He denies headache dizziness weakness numbness. He is afebrile, he has unremarkable CBC, BMP liver enzymes. INR 1.0. Hemoglobin 12.2. Right leg ultrasound is negative for DVT Patient is currently on aspirin 81 mg He has bilateral lower extremities angiogram with aortic runoff. Shows nonspecific disease. However patient still complains from significant pain and tenderness in his lower lower extremities Case was discussed with vascular surgery team and they plan for balloon angioplasty tomorrow. Review of Systems Review of systems CONSTITUTIONAL: No fever, no malaise, no fatigue. HEENT: No recent visual problems or hearing problems. Denied any sore throat. CARDIOVASCULAR: No orthopnea, PND, no palpitations, no syncope. PULMONARY: No shortness of breath, no cough, no hemoptysis. GASTROINTESTINAL: No diarrhea, no nausea, no vomiting, no abdominal pain. Normoactive bowel sounds. NEUROLOGICAL: No headaches, no weakness, no numbness. HEMATOLOGICAL: Denies any bleeding or petechiae. GENITOURINARY: Denies any burning micturition, frequency, or urgency. MUSCULOSKELETAL/RHEUMATOLOGICAL: Denies any joint pain, swelling, or any muscle pain. ENDOCRINE: Denies any polyuria or polydipsia. Past Medical History Past Medical History: Asthma, Diabetes Mellitus, GERD/Reflux, Hyperlipidemia, Hypertension, Sleep Apnea/CPAP/BIPAP Additional Past Medical History / Comment(s): STATES RECENT DIAGNOSIS OF ASTHMA, RASH ON LEFT WRIST, STATES HE CANT WALK FAR AND HAS SOB & PAIN IN HIS LEGS- PA IN WORSE WHEN CLIMBING STAIRS., PAIN ON THE BOTTOM OF LEFT FOOT WITH WALKING., PT STATES RECENT COLD AND STEROID USE (PRENISONE), SEE CARDIOLOGY H & P. History of Any Multi-Drug Resistant Organisms: None Reported Past Surgical History: No Surgical Hx Reported Additional Past Surgical History / Comment(s): HX OF COLOLOSCOPY X2, angiogram for claudication 05/13/24 Past Anesthesia/Blood Transfusion Reactions: No Reported Reaction Past Psychological History: Anxiety Smoking Status: Current every day smoker Past Alcohol Use History: Occasional Additional Past Alcohol Use History / Comment(s): SMOKING FOR 34 YEARS. USED TO SMOKE 1 PPD BUT NOW 6-7 CIGARETTES PER DAY. STATES HE DRINKS APPROX 100 OZ PER WEEK Past Drug Use History: Marijuana Additional Drug Use History / Comment(s): STATES MARIJUANA CARD, USING PRN FOR PAIN. - Past Family History Brother(s) Family Medical History: Cancer Additional Family Medical History / Comment(s): COLON CANCER Medications and Allergies Home Medications Medication Instructions Recorded Confirmed Type Atorvastatin [Lipitor] 40 mg PO DAILY 11/30/15 05/13/24 History lisinopriL [Zestril] 20 mg PO DAILY 11/30/15 05/13/24 History Amoxicillin 875 mg PO Q12HR 05/13/24 05/13/24 History Aspirin EC [Ecotrin Low Dose] 81 mg PO DAILY 05/13/24 05/13/24 History Baclofen 10 mg PO BID 05/13/24 05/13/24 History Cholecalciferol [Vitamin D3 (25 50 mcg PO DAILY 05/13/24 05/13/24 History Mcg = 1000 Iu)] Ferrous Sulfate [Feosol] 325 mg PO DAILY 05/13/24 05/13/24 History Gabapentin 300 mg PO BID 05/13/24 05/13/24 History HYDROcodone/APAP 5-325MG [[place] 1 tab PO Q12H 05/13/24 05/13/24 History 5-325] Insulin Glargine,Hum.rec.anlog 35 units SQ HS 05/13/24 05/13/24 History [Lantus Solostar Pen] amLODIPine [Norvasc] 5 mg PO DAILY 05/13/24 05/13/24 History buPROPion SR [Wellbutrin SR] 150 mg PO BID 05/13/24 05/13/24 History metFORMIN HCL 1,000 mg PO BID 05/13/24 05/13/24 History sitaGLIPtin [Januvia] 100 mg PO DAILY 05/13/24 05/13/24 History Allergies Allergy/AdvReac Type Severity Reaction Status Date / Time No Known Allergies Allergy Verified 05/13/24 11:13 Physical Exam Vitals: Vital Signs Temp Pulse Pulse Resp BP BP BP 05/14/24 02:00 98.3 F 64 16 119/68 05/13/24 20:00 98.2 F 75 20 142/90 05/13/24 17:00 66 119/67 05/13/24 16:30 68 112/68 05/13/24 16:00 69 133/76 05/13/24 15:45 63 136/73 05/13/24 15:30 67 124/72 05/13/24 15:15 67 122/70 05/13/24 15:00 98.2 F 73 17 138/79 05/13/24 14:44 64 18 132/70 05/13/24 14:29 67 18 186/77 05/13/24 14:14 81 18 143/77 05/13/24 13:26 82 18 05/13/24 11:00 83 18 05/13/24 08:23 98.0 F 78 16 120/74 Pulse Ox 05/14/24 02:00 100 05/13/24 20:00 97 05/13/24 17:00 98 05/13/24 16:30 100 05/13/24 16:00 98 05/13/24 15:45 100 05/13/24 15:30 98 05/13/24 15:15 97 05/13/24 15:00 98 05/13/24 14:44 99 05/13/24 14:29 99 05/13/24 14:14 99 05/13/24 13:26 99 05/13/24 11:00 99 05/13/24 08:23 99 Intake and Output 05/13/24 05/13/24 05/14/24 14:59 22:59 06:59 Other: # Voids 1 2 Weight 68.039 kg 68.039 kg GENERAL: The patient is alert and oriented x3, not in any acute distress. Well developed, well nourished. HEENT: Pupils are round and equally reacting to light. EOMI. No scleral icterus. No conjunctival pallor. Normocephalic, atraumatic. No pharyngeal erythema. No thyromegaly. CARDIOVASCULAR: S1 and S2 present. No murmurs, rubs, or gallops. PULMONARY: Chest is clear to auscultation, no wheezing , no crackles. ABDOMEN: Soft, nontender, nondistended, normoactive bowel sounds. No palpable organomegaly. MUSCULOSKELETAL: No joint swelling or deformity. -EXTREMITIES: No cyanosis, clubbing, or pedal edema. Right calf tenderness, no discoloration or swelling. No open wound NEUROLOGICAL: Gross neurological examination did not reveal any focal deficits. SKIN: No rashes. no petechiae. Results CBC & Chem 7: 05/13/24 11:08 05/13/24 11:08 Labs: Abnormal Lab Results - Last 24 Hours (Table) 05/13/24 05/13/24 Range/Units 11:08 11:08 RBC 3.92 L (4.30-5.90) m/uL Hgb 12.2 L (13.0-17.5) gm/dL Hct 37.2 L (39.0-53.0) % Chloride 108 H (98-107) mmol/L BUN 23 H (9-20) mg/dL Thrombosis Risk Factor Assmnt - Choose All That Apply Any of the Below Risk Factors Present?: Yes Each Factor Represents 1 point: Age 41-60 years Other Risk Factors: No Thrombosis Risk Factor Assessment Total Risk Factor Score: 1 Thrombosis Risk Factor Assessment Level: Low Risk Assessment and Plan Assessment: Acute on chronic right lower extremity pain most likely related to ischemic peripheral vascular disease, with intermittent claudication Nicotine dependence Hypertension Hyperlipidemia Diabetes mellitus Obstructive sleep apnea Chronic mild anemia Plan: Continue with aspirin Pain management Vascular surgery on the case and plan for angioplasty of his right lower extremity Labs and medication were reviewed.. Continue same treatment. Continue with symptomatic treatment. Resume home medication. Monitor labs and vitals. DVT and GI prophylaxis. Further recommendations as per clinical course of the patient DVT prophylaxis: Subcutaneous heparin GI Prophylaxis: Pepcid PT/OT: Pending Prognosis is guarded
[2024-05-14 17:07] LABS: Glucose,Whole Blood 226 mg/dL (70-110)
[2024-05-14 19:54] LABS: Glucose,Whole Blood 239 mg/dL (70-110)
[2024-05-14] MEDS: BACLOFEN 10 MG TAB PO SCH (21:08)
[2024-05-14] MEDS: GABAPENTIN 300 MG CAP PO SCH (21:08)
[2024-05-14] MEDS: buPROPion SR 150 MG TABLET.ER PO SCH (21:08)
[2024-05-15 05:27] LABS: Glucose,Whole Blood 171 mg/dL (70-110)
[2024-05-15] MEDS: LIDOCAINE 1% INJ 10MG/ML (20 ML MDV) SQ ONE (08:07)
[2024-05-15] MEDS: fentaNYL (PF) 50 MCG/ML 2 ML AMP IVP ONE (08:11)
[2024-05-15] MEDS: MIDAZOLAM 2 MG/2 ML VIAL IVP ONE (08:11)
[2024-05-15] MEDS: HEPARIN SODIUM 1,000 UN/ML (10ML VL) IVP ONE (08:16)
[2024-05-15] MEDS: SODIUM CHLORIDE 0.9% 1,000 ML IV ONE (09:29)
[2024-05-15] MEDS: CLOPIDOGREL 75 MG TAB PO ONE (09:29)
--- NOTE | 2024-05-15 09:38 | P.OP ---
Date of Procedure: 05/15/24 Preoperative Diagnosis: Right lower extremity critical limb ischemia with rest pain Right distal SFA and popliteal artery stenosis Postoperative Diagnosis: Same Procedure(s) Performed: Ultrasound-guided left common femoral artery access Right lower extremity selective angiogram third order Percutaneous atherectomy of the right superficial femoral artery and popliteal artery with HawkOne 6M device Percutaneous transluminal balloon angioplasty of the right superficial femoral artery and popliteal artery with Impact Admiral 4 x 200 mm balloon Percutaneous transluminal stenting of the popliteal artery with 5 x 60 mm ever flex protg self-expanding stent Percutaneous closure of the left common femoral artery with Vascade device Conscious sedation x 73 minutes Anesthesia: local Surgeon: Home Aleman Estimated Blood Loss (ml): 5 Pathology: none sent Condition: stable Disposition: floor Indications for Procedure: 58-year-old gentleman who originally presented to the hospital secondary to severe right lower extremity calf and foot pain and inability to ambulate. He was found to have ABIs of 0.4 on the right and underwent angiogram previously from the wrist demonstrating what appeared to be some areas of stenosis in the SFA and popliteal artery just above the knee. He presents today for selective angiogram and possible intervention of his superficial femoral artery and popliteal artery. Operative Findings: 80% stenosis of the right superficial femoral artery and greater than 90% stenosis of the popliteal artery just above the knee Two-vessel runoff to the ankle Description of Procedure: After written and informed consent was obtained the patient all risks, benefits and complications were described patient is brought to the Client Technical Specialist and laid supine position. The area of the left groin was prepped and draped in usual sterile fashion. Timeout was performed in normal fashion. Utilizing ultrasound the left femoral artery was accessed and a 6 F sheath was placed. 035 Glidewire was then placed into the aorta followed by an RBI catheter and the right iliac was accessed in an up and over fashion. Selective angiogram was then obtained of the right lower extremity demonstrating greater than 80% stenosis of the distal SFA and greater than 90% stenosis of the popliteal artery. Patient was given heparin and followed with ACTs. An 035 Glidewire advantage was then placed in an up and over fashion and the 6 F short sheath was removed and replaced with an up and over 6 F by 55 cm sheath. Selective angiogram was again obtained demonstrating occlusion/stenosis of the SFA and popliteal artery. Util izing 035 Glidewire and quick cross catheter the lesion was crossed and selective angiogram distally was obtained demonstrating good intraluminal access. Once across a 5 mm spider filter was placed and utilizing a 6 mm Hawk one atherectomy device directional atherectomy was performed with multiple passes. Once completed angiogram was obtained demonstrating improvement of the stenotic area. Balloon angioplasty was then performed with a 4 x 200 mm Impact Admiral Balloon. Final angiogram demonstrated resolution of the SFA stenosis but residual stenosis noted at the popliteal artery above the knee with calcific disease noted and therefore stenting was chosen to be performed. A 5 x 60 mm self-expanding protg stent was then placed in normal fashion followed by a 5 x 60 mm post stent balloon dilatation. Final angiogram demonstrated complete resolution of the stenosis with brisk flow to the ankle. All guidewires and catheters were then removed the sheath was removed and replaced with a short 6 F sheath and utilizing a Vascade closure device the access was closed. Pressure was placed for hemostasis. The patient tolerated the procedure well and had palpable DP pulses bilaterally and was sent to the floor for recovery.
[2024-05-15] MEDS: ATORVASTATIN 40 MG TAB PO SCH (09:49)
[2024-05-15] MEDS: HYDROcodone/APAP 5-325MG 1 EACH TAB PO PRN (09:49)
[2024-05-15] MEDS: FERROUS SULFATE 325 MG TAB PO SCH (09:49)
[2024-05-15] MEDS: ASPIRIN 81 MG PO SCH (09:50)
[2024-05-15] MEDS: CHOLECALCIFEROL 25 MCG (1000 IU) TABLET PO SCH (09:50)
--- NOTE | 2024-05-15 10:30 | IR ---
IR stent intravenous noncoronary. HISTORY: Right superficial femoral artery stenosis. COMPARISON: IR Angio abdomen with runoff dated 05/13/2024. TECHNIQUE: 15.7 minutes of fluoroscopy and 17 spot films were obtained. FINDINGS: Catheter was placed in the left common femoral artery and passed over the distal aortic bifurcation i nto the right common femoral artery. Arteriogram of the right superficial femoral artery and poplitea l artery was performed. Preprocedure right superficial femoral artery and popliteal artery arteriogra m reveals a mild to moderate focal stenosis in the adductor canal and a severe stenosis in the proxim al right popliteal artery. Following angioplasty of the superficial femoral artery in the adductor canal there is significant im provement in the intraluminal diameter. Intravascular stent was then placed across the stenosis in the proximal right popliteal artery and an gioplasty was performed dilating the stent. Follow-up right superficial femoral artery and popliteal artery arteriogram reveals no residual stenosis. IMPRESSION: Successful angioplasty of the right superficial femoral artery in the adductor canal and successful i ntravascular stent placement in the proximal right popliteal artery. [facility], Workstation: GLO 05/15/2024 10:27 AM
[2024-05-15 12:19] LABS: Glucose,Whole Blood 282 mg/dL (70-110)
[2024-05-15 17:38] LABS: Glucose,Whole Blood 180 mg/dL (70-110)
[2024-05-15 20:30] LABS: Glucose,Whole Blood 211 mg/dL (70-110)
--- NOTE | 2024-05-16 00:35 | P.PN ---
Subjective This is a pleasant 58 years old male with past medical history of multiple medical problems as below. He has known history of peripheral vascular disease and he is diabetic and he follows up with vascular surgeon as an outpatient. Patient presents because of ongoing pain in his right leg with numbness in the toes. Patient states that his problem started about 9 months ago. In the beginning his numbness was intermittent but becoming more constant lately. His pain was more severe over the last 3 weeks. He tried different modalities with no much help so he decided to come to the emergency room. Patient states that his pain was 10/10 and felt like sharp over the last 3 weeks, it got worse with walking that now he has to stop. Previously you could walk easily 10-12 blocks now barely he can get to 2 blocks and he has to stop as above. He denies chest pain or dyspnea. No GI/ symptoms. He smokes half pack per day, he says he is down from 1.5 pack/day. He states he tried all modalities like nicotine patch gums and others with no much benefit and he declines these treatments for now. No alcohol or illicit drugs. He denies headache dizziness weakness numbness. He is afebrile, he has unremarkable CBC, BMP liver enzymes. INR 1.0. Hemoglobin 12.2. Right leg ultrasound is negative for DVT Patient is currently on aspirin 81 mg He has bilateral lower extremities angiogram with aortic runoff. Shows nonspecific disease. However patient still complains from significant pain and tenderness in his lower lower extremities Case was discussed with vascular surgery team and they plan for balloon angioplasty tomorrow. 05/15 Patient is status post right lower extremity angioplasty and stent placement. Postoperatively patient was lying in bed, drowsy and sleepy however he answers questions appropriately He still has some tenderness in the right calf. He denies any other pain or concerns Objective - Vital Signs Vital signs: Vital Signs Temp 98.1 F 05/15/24 20:00 Pulse 54 L 05/15/24 20:00 Resp 16 05/15/24 14:19 BP 131/80 05/15/24 20:00 Pulse Ox 97 05/15/24 20:00 FiO2 Intake & Output 05/15/24 05/15/24 05/16/24 06:59 18:59 06:59 Intake Total 268 Output Total 550 Balance -282 Intake: IV 150 Oral 118 Output: Urine 550 Other: Voiding Method Toilet Toilet Urinal Urinal # Voids 2 # Bowel Movements 0 - Exam GENERAL: The patient is alert and oriented x3, not in any acute distress. Well developed, well nourished. HEENT: Pupils are round and equally reacting to light. EOMI. No scleral icterus. No conjunctival pallor. Normocephalic, atraumatic. No pharyngeal erythema. No thyromegaly. CARDIOVASCULAR: S1 and S2 present. No murmurs, rubs, or gallops. PULMONARY: Chest is clear to auscultation, no wheezing , no crackles. ABDOMEN: Soft, nontender, nondistended, normoactive bowel sounds. No palpable organomegaly. MUSCULOSKELETAL: No joint swelling or deformity. EXTREMITIES: No cyanosis, clubbing, or pedal edema. NEUROLOGICAL: Gross neurological examination did not reveal any focal deficits. SKIN: No rashes. no petechiae. - Labs CBC & Chem 7: 05/13/24 11:08 05/13/24 11:08 Labs: Abnormal Lab Results - Last 24 Hours (Table) 05/15/24 05/15/24 05/15/24 Range/Units 05:23 12:18 17:36 POC Glucose (mg/dL) 171 H 282 H 180 H (70-110) mg/dL 05/15/24 Range/Units 20:25 POC Glucose (mg/dL) 211 H (70-110) mg/dL Assessment and Plan Assessment: Acute on chronic right lower extremity pain most likely related to ischemic peripheral vascular disease, with intermittent claudication. Status post angioplasty and stent placement Nicotine dependence Hypertension Hyperlipidemia Diabetes mellitus Obstructive sleep apnea Chronic mild anemia Plan: Continue with aspirin Pain management Vascular surgery on the case and patient is status post for angioplasty of his right lower extremity Labs and medication were reviewed.. Continue same treatment. Continue with symptomatic treatment. Resume home medication. Monitor labs and vitals. DVT and GI prophylaxis. Further recommendations as per clinical course of the patient DVT prophylaxis: Subcutaneous heparin GI Prophylaxis: Pepcid PT/OT: Pending Prognosis is guarded
[2024-05-16 06:13] LABS: Glucose,Whole Blood 131 mg/dL (70-110)
[2024-05-16] MEDS: CLOPIDOGREL 75 MG TAB PO SCH (08:10)
[2024-05-16] MEDS ORDERED: ASPIRIN 81 MG PO SCH (09:00)
[2024-05-16 12:02] LABS: Glucose,Whole Blood 205 mg/dL (70-110)
[2024-05-16 17:16] LABS: Glucose,Whole Blood 183 mg/dL (70-110)
[2024-05-16 21:05] LABS: Glucose,Whole Blood 256 mg/dL (70-110)
--- NOTE | 2024-05-16 22:05 | P.PN ---
Subjective This is a pleasant 58 years old male with past medical history of multiple medical problems as below. He has known history of peripheral vascular disease and he is diabetic and he follows up with vascular surgeon as an outpatient. Patient presents because of ongoing pain in his right leg with numbness in the toes. Patient states that his problem started about 9 months ago. In the beginning his numbness was intermittent but becoming more constant lately. His pain was more severe over the last 3 weeks. He tried different modalities with no much help so he decided to come to the emergency room. Patient states that his pain was 10/10 and felt like sharp over the last 3 weeks, it got worse with walking that now he has to stop. Previously you could walk easily 10-12 blocks now barely he can get to 2 blocks and he has to stop as above. He denies chest pain or dyspnea. No GI/ symptoms. He smokes half pack per day, he says he is down from 1.5 pack/day. He states he tried all modalities like nicotine patch gums and others with no much benefit and he declines these treatments for now. No alcohol or illicit drugs. He denies headache dizziness weakness numbness. He is afebrile, he has unremarkable CBC, BMP liver enzymes. INR 1.0. Hemoglobin 12.2. Right leg ultrasound is negative for DVT Patient is currently on aspirin 81 mg He has bilateral lower extremities angiogram with aortic runoff. Shows nonspecific disease. However patient still complains from significant pain and tenderness in his lower lower extremities Case was discussed with vascular surgery team and they plan for balloon angioplasty tomorrow. 05/15 Patient is status post right lower extremity angioplasty and stent placement. Postoperatively patient was lying in bed, drowsy and sleepy however he answers questions appropriately He still has some tenderness in the right calf. He denies any other pain or concerns 05/16 Patient seen and examined by me at bedside Patient was sitting in his chair and does not look in distress Patient states that his right leg/calf tenderness and pain significantly improved from 10/10 down to 5/10 today Patient also complaining from some numbness in his toes on the right side which is told by his surgical team is expected from reperfusion. No other weakness or numbness Patient feels improved that he wants to go home. Vascular surgery to follow-up with the patient Check labs in the morning Plavix is added. Continued on home dose of aspirin Objective - Vital Signs Vital signs: Vital Signs Temp 98.1 F 05/16/24 15:00 Pulse 64 05/16/24 15:00 Resp 17 05/16/24 15:00 BP 132/80 05/16/24 15:00 Pulse Ox 97 05/16/24 15:00 FiO2 Intake & Output 05/16/24 05/16/24 05/17/24 06:59 18:59 06:59 Intake Total 354 Output Total 1 Balance 353 Intake: Oral 354 Output: Stool 1 Other: Voiding Method Toilet Toilet Urinal Urinal # Voids 1 10 # Bowel Movements 0 - Exam GENERAL: The patient is alert and oriented x3, not in any acute distress. Well developed, well nourished. HEENT: Pupils are round and equally reacting to light. EOMI. No scleral icterus. No conjunctival pallor. Normocephalic, atraumatic. No pharyngeal erythema. No thyromegaly. CARDIOVASCULAR: S1 and S2 present. No murmurs, rubs, or gallops. PULMONARY: Chest is clear to auscultation, no wheezing , no crackles. ABDOMEN: Soft, nontender, nondistended, normoactive bowel sounds. No palpable organomegaly. MUSCULOSKELETAL: No joint swelling or deformity. EXTREMITIES: No cyanosis, clubbing, or pedal edema. NEUROLOGICAL: Gross neurological examination did not reveal any focal deficits. SKIN: No rashes. no petechiae. - Labs CBC & Chem 7: 05/13/24 11:08 05/13/24 11:08 Labs: Abnormal Lab Results - Last 24 Hours (Table) 05/16/24 05/16/24 05/16/24 Range/Units 06:09 12:00 17:15 POC Glucose (mg/dL) 131 H 205 H 183 H (70-110) mg/dL 05/16/24 Range/Units 21:03 POC Glucose (mg/dL) 256 H (70-110) mg/dL Assessment and Plan Assessment: Acute on chronic right lower extremity pain most likely related to ischemic peripheral vascular disease, with intermittent claudication. Status post angioplasty and stent placement Nicotine dependence Hypertension Hyperlipidemia Diabetes mellitus Obstructive sleep apnea Chronic mild anemia Plan: Continue with aspirin and Plavix dual antiplatelet therapy Pain management Vascular surgery on the case and patient is status post for angioplasty of his r ight lower extremity Labs and medication were reviewed.. Continue same treatment. Continue with sy mptomatic treatment. Resume home medication. Monitor labs and vitals. DVT and GI prophylaxis. Further recommendations as per clinical course of the patient DVT prophylaxis: Subcutaneous heparin GI Prophylaxis: Pepcid PT/OT: Pending Prognosis is guarded
[2024-05-17 05:47] LABS: Glucose,Whole Blood 174 mg/dL (70-110)
[2024-05-17 07:25] VITALS: BP 157/81; PULSE 64; RESP 20; TEMP 98.1
[2024-05-17 09:00] LABS: Basophils # (A) 0.03 X 10*3/uL (0.00-0.10); Basophils % (A) 0.4 %; Eosinophils # (A) 0.31 X 10*3/uL (0.04-0.35); Eosinophils % (A) 3.9 %; HCT 37.3 % (39.6-50.0); HGB 12.5 g/dL (13.0-17.0); Lymphocytes # (A) 2.39 X 10*3/uL (0.90-5.00); Lymphocytes % (A) 29.9 %; MCH 30.9 pg (27.0-32.0); MCHC 33.5 g/dL (32.0-37.0); MCV 92.1 FL (80.0-97.0); Monocytes % (A) 11.3 %; NRBC Per 100 WBC 0 X 10*3/uL (0.00-0.01); Neutrophils # (A) 4.33 X 10*3/uL (1.80-7.70); Platelet Count 240 X 10*3/uL (140-440); RBC 4.05 X 10*6/uL (4.40-5.60); RDW 12.3 % (11.5-14.5)
[2024-05-17 09:06] LABS: Blood Urea Nitrogen 18.8 mg/dL (9.0-27.0); Carbon Dioxide 23.2 mmol/L (21.6-31.8); Chloride 102 mmol/L (96-109); Glucose 155 mg/dL (70-110); Potassium 4.5 mmol/L (3.5-5.5); Sodium 137 mmol/L (135-145)
--- NOTE | 2024-05-17 11:53 | P.PN ---
Subjective Progress Note Date: 05/17/24 Principal diagnosis: right lower extremity limb ischemia Patient seen and evaluated. Doing well. States pain in calf has resolved. No other complaints. Objective - Vital Signs Vital signs: Vital Signs Temp 98.1 F 05/17/24 07:00 Pulse 64 05/17/24 07:00 Resp 20 05/17/24 07:00 BP 157/81 05/17/24 07:00 Pulse Ox 99 05/17/24 07:00 FiO2 Intake & Output 05/16/24 05/17/24 05/17/24 18:59 06:59 18:59 Intake Total 354 Output Total 1 Balance 353 Intake: Oral 354 Output: Stool 1 Other: Voiding Method Toilet Toilet Toilet Urinal Urinal # Voids 10 2 - Exam palpable PT pulse right Good capillary refill Weakness LUE/LLE- stable - Constitutional General appearance: Present: average body habitus - EENT Eyes: Present: PERRLA - Labs CBC & Chem 7: 05/17/24 04:36 05/17/24 04:36 Labs: Abnormal Lab Results - Last 24 Hours (Table) 05/16/24 05/16/24 05/16/24 Range/Units 12:00 17:15 21:03 RBC (4.40-5.60) X 10*6/uL Hgb (13.0-17.0) g/dL Hct (39.6-50.0) % Glucose (70-110) mg/dL POC Glucose (mg/dL) 205 H 183 H 256 H (70-110) mg/dL 05/17/24 05/17/24 05/17/24 Range/Units 04:36 04:36 05:45 RBC 4.05 L (4.40-5.60) X 10*6/uL Hgb 12.5 L (13.0-17.0) g/dL Hct 37.3 L (39.6-50.0) % Glucose 155 H (70-110) mg/dL POC Glucose (mg/dL) 174 H (70-110) mg/dL Assessment and Plan Assessment: Critical limb ischemia right lower extremity POD 2 Right lower extremity revascularization with popliteal artery stenting History of CVA with left sided weakness DM Plan: Ok for discharge home Continue aspirin, plavix and statin. Follow up in 2 weeks in office.
[2024-05-17 12:21] LABS: Glucose,Whole Blood 200 mg/dL (70-110)
== END 2024-05-17 13:19 | disposition home or self-care (01) | DRG 182 ==
LOC: EC 08:15 → OBSVTOIN 10:27 → 6NMEDSUR 10:27 → 3SCARD 14:01 → 6NMEDSUR 14:06
PROVIDERS: ADMIT Internal Medicine; ATTEND Internal Medicine
PROC: B41D1ZZ Fluoroscopy of Aorta and Bilateral Lower Extremity Arteries using Low Osmolar Contrast (ICD-10-PCS; principal; 2024-05-13 15:20)
PROC: 04CK3ZZ Extirpation of Matter from Right Femoral Artery, Percutaneous Approach (ICD-10-PCS; 2024-05-15)
PROC: 047M3DZ Dilation of Right Popliteal Artery with Intraluminal Device, Percutaneous Approach (ICD-10-PCS; 2024-05-15)
DX: E11.51 Type 2 diabetes mellitus with diabetic peripheral angiopathy without gangrene (principal); I70.221 Atherosclerosis of native arteries of extremities with rest pain, right leg; I69.354 Hemiplegia and hemiparesis following cerebral infarction affecting left non-dominant side; Z79.4 Long term (current) use of insulin; J45.909 Unspecified asthma, uncomplicated; D64.9 Anemia, unspecified; I10 Essential (primary) hypertension; G47.33 Obstructive sleep apnea (adult) (pediatric); F17.210 Nicotine dependence, cigarettes, uncomplicated; E78.5 Hyperlipidemia, unspecified; Z79.891 Long term (current) use of opiate analgesic; Z79.82 Long term (current) use of aspirin; Z79.84 Long term (current) use of oral hypoglycemic drugs; Z79.899 Other long term (current) drug therapy
CPT/HCPCS: 36200; 37227; 75625; 75716; 80048; 80053; 85025; 85027; 85610; 85730; 96372; 99285

== ENCOUNTER 2024-05-21 07:43 | Emergency (ER) | payer OTHER ==
--- NOTE | 2024-05-21 08:14 | ED ---
General Adult HPI - General Chief complaint: Extremity Problem,Nontraumatic Stated complaint: R Leg Pain Time Seen by Provider: 05/21/24 07:50 Source: patient, RN notes reviewed, old records reviewed Limitations: no limitations - History of Present Illness Initial comments: 58-year-old male presenting with left foot pain and right shoulder pain. Patient is postop right lower extremity vascular procedure for peripheral vascular disease. He states that his right leg feels great he has no pain. His left leg and hip pain started when he put his ankle brace on and began to am bulate after surgery. He denies a specific injury but this is worse with ambulation. He also complains of right shoulder pain which began after lifting a microwave 3 weeks ago. He denies fever. Denies nausea vomiting. He states he has been compliant with his medications. - Related Data Home Medications Medication Instructions Recorded Confirmed Atorvastatin [Lipitor] 40 mg PO DAILY 11/30/15 05/13/24 lisinopriL [Zestril] 20 mg PO DAILY 11/30/15 05/13/24 Baclofen 10 mg PO BID 05/13/24 05/13/24 Cholecalciferol [Vitamin D3 (25 50 mcg PO DAILY 05/13/24 05/13/24 Mcg = 1000 Iu)] Ferrous Sulfate [Iron (65 MG 325 mg PO DAILY 05/13/24 05/13/24 Elemental)] Gabapentin 300 mg PO BID 05/13/24 05/13/24 HYDROcodone/APAP 5-325MG [[place] 1 tab PO Q12H 05/13/24 05/13/24 5-325] Insulin Glargine,Hum.rec.anlog 35 units SQ HS 05/13/24 05/13/24 [Lantus Solostar Pen] buPROPion SR [Wellbutrin SR] 150 mg PO BID 05/13/24 05/13/24 metFORMIN HCL 1,000 mg PO BID 05/13/24 05/13/24 sitaGLIPtin [Januvia] 100 mg PO DAILY 05/13/24 05/13/24 Previous Rx's Medication Instructions Recorded Clopidogrel [Plavix] 75 mg PO DAILY #30 tab 05/16/24 Aspirin EC [Ecotrin Low Dose] 81 mg PO DAILY #30 tab 05/17/24 amLODIPine [Norvasc] 5 mg PO DAILY #30 tab 05/17/24 Ibuprofen [Motrin] 600 mg PO Q8HR PRN #15 tab 05/21/24 Allergies Allergy/AdvReac Type Severity Reaction Status Date / Time No Known Allergies Allergy Verified 05/13/24 11:13 Review of Systems ROS Statement: Those systems with pertinent positive or pertinent negative responses have been documented in the HPI. ROS Other: All systems not noted in ROS Statement are negative. Past Medical History Past Medical History: Asthma, Diabetes Mellitus, GERD/Reflux, Hyperlipidemia, Hypertension, Sleep Apnea/CPAP/BIPAP Additional Past Medical History / Comment(s): STATES RECENT DIAGNOSIS OF ASTHMA, RASH ON LEFT WRIST, STATES HE CANT WALK FAR AND HAS SOB & PAIN IN HIS LEGS- PAIN WORSE WHEN CLIMBING STAIRS., PAIN ON THE BOTTOM OF LEFT FOOT WITH WALKING., PT STATES RECENT COLD AND STEROID USE (PRENISONE), SEE CARDIOLOGY H & P. History of Any Multi-Drug Resistant Organisms: None Reported Past Surgical History: No Surgical Hx Reported Additional Past Surgical History / Comment(s): HX OF COLOLOSCOPY X2, angiogram for claudication 05/13/24 Past Anesthesia/Blood Transfusion Reactions: No Reported Reaction Past Psychological History: Anxiety Smoking Status: Current every day smoker Past Alcohol Use History: Occasional Past Drug Use History: Marijuana - Past Family History Brother(s) Family Medical History: Cancer Additional Family Medical History / Comment(s): COLON CANCER General Exam Limitations: no limitations General appearance: alert, in no apparent distress Head exam: Present: atraumatic, normocephalic Eye exam: Present: normal appearance, PERRL ENT exam: Present: normal exam Neck exam: Present: normal inspection. Absent: tenderness, meningismus Respiratory exam: Present: normal lung sounds bilaterally. Absent: respiratory distress, wheezes Cardiovascular Exam: Present: regular rate, normal rhythm GI/Abdominal exam: Present: soft. Absent: distended, tenderness, guarding, rebound Extremities exam: Present: normal inspection, tenderness (Tenderness in the lateral quadriceps on the left no skin changes, no erythema no crepitus no induration. Distal pulse exam, DP and PT pulses in the bilateral lower extremities are 2+ and symmetric), normal capillary refill, other. Absent: calf tenderness Neurological exam: Present: alert, oriented X3 Psychiatric exam: Present: normal affect, normal mood Skin exam: Present: warm, dry, intact, normal color. Absent: rash Course Vital Signs 05/21/24 07:49 Temperature 97.8 F Pulse Rate 77 Respiratory 16 Rate Blood Pressure 121/69 O2 Sat by Pulse 98 Oximetry Medical Decision Making - Medical Decision Making Was pt. sent in by a medical professional or institution (LISANDRO Delong, INFANTRY ASSAULTMAN, urgent care, hospital, or skilled nursing...) When possible be specific @ -No Did you speak to anyone other than the patient for history (EMS, parent, family, police, friend...)? What history was obtained from this source @ -No Did you review nursing and triage notes (agree or disagree)? Why? @ -I reviewed and agree with nursing and triage notes Were old charts reviewed (outside hosp., previous admission, EMS record, old EKG, old radiological studies, urgent care reports/EKG's, skilled nursing records)? Report findings @ -No old charts were reviewed Differential Musculoskeletal Muscular strain, contusion, ligament sprain, fracture, arthritis, septic arthritis, bursitis, cellulitis, muscle spasm, nerve compression, DVT, arterial occlusion, herpes zoster, electrolyte abnormality, tumor.... This is not meant to be in all inclusive list EKG interpreted by me (3pts min.). @ -As above X-rays interpreted by me (1pt min.). @ -None done CT interpreted by me (1pt min.). @ -None done U/S interpreted by me (1pt. min.). @ -None done What testing was considered but not performed or refused? (CT, X-rays, U/S, labs)? Why? @ -None What meds were considered but not given or refused? Why? @ -None Did you discuss the management of the patient with other professionals (professionals i.e. LISANDRO Delong, INFANTRY ASSAULTMAN, lab, RT, psych nurse, transition social worker, certified nurse operating room, teacher, contracts officer, housing case manager)? Give summary @ -Case discussed with Dr. Aleman, who is familiar with this patient. I have a very low suspicion for a vascular cause of the patient's pain. Okay for anti- inflammatory occasion Was smoking cessation discussed for >3mins.? @ -No Was critical care preformed (if so, how long)? @ -No Were there social determinants of health that impacted care today? How? (Homelessness, low income, unemployed, alcoholism, drug addiction, transportation, low edu. Level, literacy, decrease access to med. care, prison, rehab)? @ -No Was there de-escalation of care discussed even if they declined (Discuss DNR or withdrawal of care, Hospice)? DNR status @ -No What co-morbidities impacted this encounter? (DM, HTN, Smoking, COPD, CAD, Cancer, CVA, ARF, Chemo, Hep., AIDS, mental health diagnosis, sleep apnea, morbid obesity)? @ -None Was patient admitted / discharged? Hospital course, mention meds given and route, prescriptions, significant lab abnormalities, going to OR and other pertinent info. @ -58-year-old male with left hip pain right shoulder pain. His right shoulder pain is attributed to a injury while lifting a microwave 3 weeks ago. He has normal range of motion in this shoulder. He has point tenderness consistent with a musculoskeletal cause of his pain. No direct trauma to the shoulder. Left hip and thigh pain is worse with range of motion and palpation. This is also musculoskeletal in nature. He has normal femoral pulses, normal DP and PT pulses. He has normal vitals. No abdominal pain. No fever. I do feel this patient is stable for outpatient follow-up regarding the symptoms and will trial anti-inflammatory. Undiagnosed new problem with uncertain prognosis? @ -No Drug Therapy requiring intensive monitoring for toxicity (Heparin, Nitro, Insulin, Cardizem)? @ -No Were any procedures done? @ -No Diagnosis/symptom? @Shoulder strain, left hip pain Acute, or Chronic, or Acute on Chronic? @ -Acute Uncomplicated (without systemic symptoms) or Complicated (systemic symptoms)? @ -Complicated Side effects of treatment? @ -No Exacerbation, Progression, or Severe Exacerbation? @ -No Poses a threat to life or bodily function? How? (Chest pain, [place], [place], pneumonia, PE, COPD, DKA, ARF, appy, cholecystitis, CVA, Diverticulitis, Homicidal, Suicidal, threat to staff... and all critical care pts) @ -No Disposition Clinical Impression: Left hip pain, Right shoulder strain Disposition: HOME SELF-CARE Condition: Fair Instructions (If sedation given, give patient instructions): Hip Pain (ED), Shoulder Sprain (ED) Prescriptions: Ibuprofen [Motrin] 600 mg PO Q8HR PRN #15 tab PRN Reason: Pain Is patient prescribed a controlled substance at d/c from ED?: No Referrals: Neri Booth [Primary Care Provider] - 1-2 days Time of Disposition: 08:31
[2024-05-21 08:29] VITALS: RESP 17; TEMP 97.9
[2024-05-21] MEDS: KETOROLAC 15 MG/ML 1 ML VIAL IM STA (08:37)
[2024-05-21 08:43] VITALS: BP 128/76; PULSE 75
== END 2024-05-21 08:55 | disposition home or self-care (01) ==
LOC: EC 07:43
CPT/HCPCS: 96372; 99283

== ENCOUNTER → 2024-11-02 | Outpatient (CLI) | payer OTHER | END | disposition home or self-care (01) | LOC: LABWHC1 08:11 | PROVIDERS: ATTEND Family Medicine | DX: E11.51 Type 2 diabetes mellitus with diabetic peripheral angiopathy without gangrene (principal); Z79.4 Long term (current) use of insulin | CPT/HCPCS: 36415; 82728; 83036; 83540 ==

== ENCOUNTER → 2025-03-09 | Outpatient (CLI) | payer OTHER ==
[2025-03-09 12:00] LABS: African American GFR (CKD) >90 (>60 ml/min/1.73 sqM); Blood Urea Nitrogen 18 mg/dL (9-20); Non-African American GFR(CKD) >90 (>60 ml/min/1.73 sqM)
--- NOTE | 2025-03-09 13:39 | CT ---
EXAMINATION TYPE: CT angio abd aorta w/Runoff CT DLP: 1569.2 mGycm, Automated exposure control for dose reduction was used. 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 Hx of stent placed. TECHNIQUE: Multiple thin slice sub-millimeter images were obtained through the abdomen, pelvis, and l ower extremities after administration of contrast. Noncontrast imaging of the abdomen and pelvis was performed before the administration of contrast. Patient was given Isovue 370, 100 cc intravenously. 3-D reconstructed images and maximum intensity projection images were obtained of the abdomen, pelv is, and lower extremities. FINDINGS: CTA Abdomen and pelvis: The abdominal aorta does not demonstrate aneurysmal dilatation. Atherosclero tic plaquing is identified within the abdominal aorta. No evidence for intramural hematoma or dissect ion. The origins of the superior mesenteric artery, renal arteries, inferior mesenteric artery, and c eliac axis are patent. The celiac axis is widely patent. Mild stenosis at the origin of the SMA secon isabel to calcified plaque. LINDA is widely pain. The right renal artery is widely patent. There are 2 le ft renal arteries which are widely patent. Atherosclerotic plaque involving the bilateral common horacio c arteries which are patent without significant stenosis. Calcific plaque involving the bilateral int ernal iliac arteries with multilevel moderate to severe short segment stenosis. Multilevel mild short segment stenosis of the right external iliac artery which is patent. Moderate short segment stenosis at the origin of the left external iliac artery secondary to calcified and noncalcified plaque. The remaining portion is widely patent. CTA Lower extremities: Right: The common femoral and superficial femoral arteries are patent. The deep femoral artery is pat ent without significant stenosis. A vascular stent involving the distal superficial femoral artery in to the popliteal artery. This is patent. Moderate short segment stenosis of the popliteal artery whic h is patent with calcified plaque. The tibioperoneal trunk is widely patent. Anterior and posterior t ibial arteries as well as the peroneal artery are patent. Anterior and posterior tibial arteries cros s the ankle. Left: The common femoral and superficial femoral arteries are patent. Mild short segment stenosis of the distal superficial femoral artery secondary to calcified plaque. The popliteal artery is patent w ith moderate focal short segment stenosis. The tibioperoneal trunk is widely patent. Anterior and pos terior tibial arteries as well as the peroneal artery are patent. Anterior and posterior tibial arter ies cross the ankle. VISCERA: The liver, spleen, adrenal glands, kidneys, pancreas, and gallbladder are not optimally enha nced due the arterial phase utilized. LIVER: Unremarkable GALLBLADDER AND BILE DUCTS: Unremarkable. PANCREAS: Unremarkable. SPLEEN: Unremarkable. ADRENAL GLANDS: Unremarkable. KIDNEYS AND URETERS: No evidence of hydronephrosis. Approximately 3 nonobstructing right renal lower pole calculi with largest measuring up to 1 cm. Left renal vascular calcification. The kidneys enhanc e symmetrically. There is 3 left renal lower pole lesions medially. The more superior lesion demonstr ates heterogenous enhancement and measures 2.5 x 2.1 cm (series 5, image 65). The middle lesion measu res 3.7 x 3.4 cm and is cystic with thin enhancing wall (series 5, image 75). The most inferior lesio n demonstrates heterogenous enhancement and measures 3.9 x 3.5 cm. No distinct involvement of the jayme al vein. Overall length of the 3 lesions combine measures 6.3 cm in CC dimension. PELVIS BLADDER: Unremarkable REPRODUCTIVE: Coarse calcifications of the prostate gland are identified. ABDOMEN & PELVIS STOMACH AND BOWEL: Stomach and duodenum are unremarkable. No bowel wall thickening or surrounding inf lammatory changes. No evidence of bowel obstruction. PERITONEUM: No evidence of pneumoperitoneum or free fluid. MUSCULOSKELETAL: No acute osseous abnormalities. Remote-appearing superior endplate compression defor mity of the T11 vertebral body with approximately 10% height loss and no retropulsion. Multilevel deg enerative disc disease of the lumbar spine appear most pronounced at L4-L5. Bilateral plantar calcane al enthesophytes. LYMPH NODES: No evidence for lymphadenopathy. SOFT TISSUE/ABDOMINAL WALL: Unremarkable LOWER CHEST: No significant findings. IMPRESSION: 1. No evidence of vascular occlusion. Atherosclerotic disease involving abdominal aorta and lower ex tremity vasculature as described above. No evidence for aneurysm. Patent vascular stent involving the right superficial femoral artery and popliteal artery. At least two vessels are seen crossing the an kle joint bilaterally. 2. Left renal lower pole heterogenous grouped enhancing lesions and cyst as described above. Raises c oncern for possible renal cell carcinoma versus other etiologies such as oncocytomas. Urology consult is recommended. 3. Nonobstructing right renal calculi. [facility], , 03/09/2025 1:37 PM
== END | disposition home or self-care (01) ==
LOC: RADCTMAIN 11:29
PROVIDERS: ATTEND Surgery
DX: I70.213 Atherosclerosis of native arteries of extremities with intermittent claudication, bilateral legs (principal); N20.0 Calculus of kidney; I70.0 Atherosclerosis of aorta
CPT/HCPCS: 82565; 84520; 75635; 36415; Q9967